=== PATIENT | female | born 1985 | race Caucasian/White ===

== ENCOUNTER → 2022-03-27 10:54 | Outpatient (BNVA) | payer MEDICARE, SELFPAY | PROVIDERS: PCP Physician Assistant; Visit Provider Nurse Practitioner Family | DX: G43.109 Migraine with aura, not intractable, without status migrainosus (principal); G35 Multiple sclerosis; R25.2 Cramp and spasm | CPT/HCPCS: 99202 ==

== ENCOUNTER → 2022-07-16 10:02 | Outpatient (BNVA) | payer MEDICARE, SELFPAY | PROVIDERS: PCP Physician Assistant; Visit Provider Nurse Practitioner Family | DX: G43.109 Migraine with aura, not intractable, without status migrainosus (principal); R25.2 Cramp and spasm; Z79.899 Other long term (current) drug therapy | CPT/HCPCS: 99212 ==

== ENCOUNTER → 2022-07-24 10:11 | Outpatient (BNVA) | payer MEDICARE, SELFPAY | PROVIDERS: PCP Physician Assistant; Visit Provider Psychiatry & Neurology Neurology | DX: G43.119 Migraine with aura, intractable, without status migrainosus (principal) | CPT/HCPCS: 64615; 99211; J0585 ==

== ENCOUNTER → 2022-09-20 14:04 | Outpatient (BNVA) | payer MEDICARE, SELFPAY | PROVIDERS: Visit Provider Nurse Practitioner Family | DX: G43.119 Migraine with aura, intractable, without status migrainosus (principal); R25.2 Cramp and spasm; Z79.899 Other long term (current) drug therapy | CPT/HCPCS: Q3014 ==

== ENCOUNTER → 2022-12-31 10:44 | Outpatient (BNVA) | payer MEDICARE, SELFPAY | PROVIDERS: Visit Provider Psychiatry & Neurology Neurology | DX: G43.709 Chronic migraine without aura, not intractable, without status migrainosus (principal) | CPT/HCPCS: 64615; 99211; J0585 ==

== ENCOUNTER → 2023-04-16 12:17 | Outpatient (BNVA) | payer MEDICARE, MEDICAID, SELFPAY | PROVIDERS: Visit Provider Psychiatry & Neurology Neurology | DX: G43.709 Chronic migraine without aura, not intractable, without status migrainosus (principal); G43.119 Migraine with aura, intractable, without status migrainosus | CPT/HCPCS: 64615; 99211; J0585 ==

== ENCOUNTER 2023-08-05 10:53 | Outpatient (AMB) | payer MEDICARE, SELFPAY ==
--- NOTE | 2023-08-05 11:05 | MHC.OFFVIS ---
Intake Vital Signs 08/05/23 11:06 Weight 165 lb BP 120/66 Blood Pressure Location Rt brachial Position Sitting Pulse 68 Pulse Source Pulse Oximeter Pulse Oximetry (%) 98 Oxygen Delivery Method Room Air Intake Visit Reasons: BOTOX(Pharm)-confirmed Intake Note: Pt is here for botox today Allergies topiramate [From Topamax] Allergy (Intermediate, Verified 08/05/23 11:09) Numbness acetaminophen [From Vicodin] Adverse Reaction (Severe, Verified 08/05/23 11:08) Numbness hydrocodone [From Vicodin] Adverse Reaction (Severe, Verified 08/05/23 11:08) Numbness morphine Adverse Reaction (Mild, Verified 08/05/23 11:08) Numbness sumatriptan [From Imitrex] Adverse Reaction (Mild, Verified 08/05/23 11:08) Unknown Medication List - Last Reconciled 08/12/23 by Jeannine Roman MD amlodipine 2.5 mg PO DAILY baclofen 2.5 - 5 mg (0.5 - 1 x 5 mg) PO DAILY 30 days cholecalciferol (vitamin D3) 50 mcg PO DAILY ocrelizumab (Ocrevus) 600 mg IV [id number] onabotulinumtoxinA (Botox) 155 - 200 units IM ONCE 90 days scopolamine base 1 patch topical Q3D PRN HPI HPI Comments History of Present Illness Details ? 37y/o female comes for treatment of migraines with botox. ??? Most frequent reported adverse reactions following injection of botox for chronic migraine include neck pain (9%), headache(5%), eyelid ptosis(4%), migraine(4%), muscular weakness(4%), musculuskeletal stiffness(4%), bronchitis(3%), injection site pain (3%), musculoskeletal pain(3%), myalgia(3%), facial paresis(2%), HTN(2%) and muscle spasms(2%) were discussed in detail. ??? Botulinum toxin typeA 200units Lot no [id number] expiration Dec 2025 was diluted with 4 cc of normal saline . ??? Muscles injected- ??? Frontalis 4 sites ??? Procerus 1 site ??? Paint Mixer Machine- 2 sites ??? Temporalis- 8 sites ??? Occipitalis- 6 sites ??? Cervical paraspinals- 4 sites ??? Trapezius- 6 sites- 10 units each ??? 5 units each in 31 site ??? Total use- 185units ??? Discarded-15units PFSH Surgical History Hx of hysterectomy Family History Mother Diabetes Fibromyalgia HTN (hypertension) Brother HTN (hypertension) Social History Alcohol intake: never Patient Tobacco Use Status: Never used Tobacco Physical Exam Vital Signs: Last Vital Signs Pulse 68 08/05/23 11:06 BP 120/66 08/05/23 11:06 Pulse Ox 98 08/05/23 11:06 Oxygen Delivery Method Room Air 08/05/23 11:06 Const General: cooperative and no acute distress Orientation/consciousness: patient oriented x3 HEENT Head: Yes normocephalic Neuro General: patient oriented x3, gait normal and CN's II-XI intact bilaterally Cognition (Neuro): normal cognition Motor exam (neuro): 5/5 motor strength present throughout Office Procedures Botulinum toxin Injection 29535 - Migraine Procedure code (CPT) selection complete Office Meds onabotulinumtoxinA 200 unit solution for injection Performing Provider: Jeannine Roman MD Performing Location: [facility] [place] [facility] Administered by: Jeannine Roman MD on 08/12/23 08:26 Dose Route Admin Location Dispensed Lot Number Expiration Date [facility] Senior Windows Systems Engineer 185 unit subcut 200 units [id number] 12/11/25 9545-7693-23 ALLERGAN/BOTOX Comments: see hpi BOTOX was supplied by patient through specialty pharmacy Assessment & Plan Assessment & Plan (1) Migraine with aura, intractable, without status migrainosus: Code(s): G43.119 - Migraine with aura, intractable, without status migrainosus (2) Chronic migraine without aura: Code(s): G43.709 - Chronic migraine without aura, not intractable, without status migrainosus Plan Patient tolerated the procedure well she will call with any side effects ubrelvy 50mg as needed for migraines. ERROR IN ORDERS- BOTOX was supplied by patient . Orders: Orders AMB Botulinum toxin Injection 08/05/23 G43.709 - Chronic migraine without aura, not intractable, without status migrainosus Coding Level of Care Code Est Pt Level 1 (91686) Diagnoses Migraine with aura, intractable, without status migrainosus G43.119 Chronic migraine without aura G43.709 CPT Codes Botox Injection - Botox 3: 01385 - Migraine ([id number])
[2023-08-05 11:06] VITALS: BP 120/66; PULSE 68; O2SAT 98
== END 2023-08-05 11:30 | disposition home or self-care (01) ==
PROVIDERS: Visit Provider Psychiatry & Neurology Neurology
DX: G43.119 Migraine with aura, intractable, without status migrainosus (principal); G43.709 Chronic migraine without aura, not intractable, without status migrainosus
CPT/HCPCS: 64615

== ENCOUNTER → 2023-08-05 10:53 | Outpatient (BNVA) | payer MEDICARE, SELFPAY | PROVIDERS: Visit Provider Psychiatry & Neurology Neurology | DX: G43.119 Migraine with aura, intractable, without status migrainosus (principal); G43.709 Chronic migraine without aura, not intractable, without status migrainosus | CPT/HCPCS: 64615; 99211; J0585 ==

== ENCOUNTER 2023-12-15 10:53 | Outpatient (AMB) | payer MEDICARE, SELFPAY ==
--- NOTE | 2023-12-15 10:58 | A.OFFVIS_ITS ---
Intake Vital Signs 12/15/23 11:02 Height 5 ft 3 in Weight 155 lb BMI 27.5 BP 118/76 Respiration 16 Pulse 83 Pulse Source Pulse Oximeter Pulse Oximetry (%) 99 Oxygen Delivery Method Room Air Intake Visit Reasons: BOTOX(Pharm) - LVM Intake Note: Pt presents for Botox injections. Economic Research Analyst Required: No Allergies topiramate [From Topamax] Allergy (Intermediate, Verified 12/15/23 11:00) Numbness acetaminophen [From Vicodin] Adverse Reaction (Severe, Verified 12/15/23 11:00) Numbness hydrocodone [From Vicodin] Adverse Reaction (Severe, Verified 12/15/23 11:00) Numbness morphine Adverse Reaction (Mild, Verified 12/15/23 11:00) Numbness sumatriptan [From Imitrex] Adverse Reaction (Mild, Verified 12/15/23 11:00) Unknown Medication List - Last Reconciled 12/15/23 by Jeannine Roman MD amlodipine 2.5 mg PO DAILY baclofen 2.5 - 5 mg (0.5 - 1 x 5 mg) PO DAILY 30 days cholecalciferol (vitamin D3) 50 mcg PO DAILY ocrelizumab (Ocrevus) 600 mg IV [id number] onabotulinumtoxinA (Botox) 155 - 200 units IM ONCE 90 days scopolamine base 1 patch topical Q3D PRN HPI HPI Comments History of Present Illness Details ? 37y/o female comes for treatment of migraines with botox. How many migraine days prior to botox- 15-20 migraine days How long do the migraines last- 1-3 days Intensity of migraine- 8-08/19 ER visits related to migraine- 1-2 Effectiveness of botox from last two treatment(s) How many migraine days since receiving treatment: -3-5/month Change? in intensity of migraine?less intense Change in frequency of migraine?decreased Change in use of acute medication for migraine? decreased meds Change in quality of life?improved ER visits related to migraine?none Have at least three months elapsed since last treatment (Last botox date - frequency of injections) 08/05/23 ??? Most frequent reported adverse reactions following injection of botox for chronic migraine include neck pain (9%), headache(5%), eyelid ptosis(4%), migraine(4%), muscular weakness(4%), musculuskeletal stiffness(4%), bronchitis(3%), injection site pain (3%), musculoskeletal pain(3%), myalgia(3%), facial paresis(2%), HTN(2%) and muscle spasms(2%) were discussed in detail. ??? Botulinum toxin typeA 200units Lot no [id number] expiration April 2026 was diluted with 4 cc of normal saline . ??? Muscles injected- ??? Frontalis 4 sitesfgffg ??? Procerus 1 site ??? Community Relations Officer- 2 sites ??? Temporalis- 8 sites ??? Occipitalis- 6 sites ??? Cervical paraspinals- 4 sites ??? Trapezius- 6 sites- 10 units each ??? 5 units each in 31 site ??? Total use- 185units ??? Discarded-15units PFSH Surgical History Hx of hysterectomy Family History Mother Diabetes Fibromyalgia HTN (hypertension) Brother HTN (hypertension) Social History Alcohol intake: never Patient Tobacco Use Status: Never used Tobacco Physical Exam Vital Signs: Last Vital Signs Pulse 83 12/15/23 11:02 Resp 16 12/15/23 11:02 BP 118/76 12/15/23 11:02 Pulse Ox 99 12/15/23 11:02 Oxygen Delivery Method Room Air 12/15/23 11:02 BMI result Body Mass Index 27.5 Const General: cooperative and no acute distress Orientation/consciousness: patient oriented x3 HEENT Head: Yes normocephalic Neuro General: patient oriented x3, gait normal and CN's II-XI intact bilaterally Cognition (Neuro): normal cognition Motor exam (neuro): 5/5 motor strength present throughout Office Procedures Botulinum toxin Injection 63612 - Migraine Procedure code (CPT) selection complete Office Meds onabotulinumtoxinA 200 unit solution for injection Performing Provider: Jeannine Roman MD Performing Location: [facility] [place] [facility] Administered by: Jeannine oRman MD on 12/15/23 11:30 Dose Route Admin Location Dispensed Lot Number Expiration Date N[employer] Phone Specialist 185 unit IM 200 units [id number] 04/10/26 6840-6847-40 ALLERGAN/BOTOX Comments: see hpi Assessment & Plan Assessment & Plan (1) Migraine with aura, intractable, without status migrainosus: Code(s): G43.119 - Migraine with aura, intractable, without status migrainosus (2) Chronic migraine without aura: Code(s): G43.709 - Chronic migraine without aura, not intractable, without status migrainosus Plan Patient tolerated the procedure well she will call with any side effects ubrelvy 50mg as needed for migraines. Orders: Orders AMB Botulinum toxin Injection - Patient Supplied Today G43.709 - Chronic migraine without aura, not intractable, without status migrainosus Coding Level of Care Code Est Pt Level 1 (76908) Diagnoses Migraine with aura, intractable, without status migrainosus G43.119 Chronic migraine without aura G43.709 CPT Codes Botox Injection - Botox 3: 85015 - Migraine ([id number])
[2023-12-15 11:02] VITALS: BP 118/76; PULSE 83; RESP 16; O2SAT 99; BMI 27.5
== END 2023-12-15 11:30 | disposition home or self-care (01) ==
PROVIDERS: Visit Provider Psychiatry & Neurology Neurology
DX: G43.119 Migraine with aura, intractable, without status migrainosus (principal); G43.709 Chronic migraine without aura, not intractable, without status migrainosus
CPT/HCPCS: 64615

== ENCOUNTER → 2023-12-15 10:53 | Outpatient (BNVA) | payer MEDICARE, SELFPAY | PROVIDERS: Visit Provider Psychiatry & Neurology Neurology | DX: G43.709 Chronic migraine without aura, not intractable, without status migrainosus (principal); G43.119 Migraine with aura, intractable, without status migrainosus | CPT/HCPCS: 64615; 99211; J0585 ==

== ENCOUNTER 2024-03-17 09:29 | Outpatient (AMB) | payer MEDICARE, SELFPAY ==
--- NOTE | 2024-03-17 09:32 | A.OFFVIS_ITS ---
Vital Signs 03/17/24 09:33 Height 5 ft 3 in Weight 155 lb BMI 27.5 BP 108/70 Blood Pressure Location Rt brachial Position Sitting Respiration 16 Pulse 80 Pulse Source Palpation Intake Visit Reasons: BOTOX(Pharm)- CONF Intake Note: Pt presents to the office for Botox injections. Car Builder Required: No Allergies topiramate [From Topamax] Allergy (Intermediate, Verified 03/17/24 09:33) Numbness acetaminophen [From Vicodin] Adverse Reaction (Severe, Verified 03/17/24 09:33) Numbness hydrocodone [From Vicodin] Adverse Reaction (Severe, Verified 03/17/24 09:33) Numbness morphine Adverse Reaction (Mild, Verified 03/17/24 09:33) Numbness sumatriptan [From Imitrex] Adverse Reaction (Mild, Verified 03/17/24 09:33) Unknown Medication List - Last Reconciled 03/17/24 by Jeannine Roman MD amlodipine 2.5 mg PO DAILY baclofen 2.5 - 5 mg (0.5 - 1 x 5 mg) PO DAILY 30 days cholecalciferol (vitamin D3) 50 mcg PO DAILY ocrelizumab (Ocrevus) 600 mg IV [id number] onabotulinumtoxinA (Botox) 155 - 200 units IM ONCE 90 days scopolamine base 1 patch topical Q3D PRN HPI Comments Details: ? 38y/o female comes for treatment of migraines with botox. How many migraine days prior to botox- 15-20 migraine days How long do the migraines last- 1-3 days Intensity of migraine- 8-10/10 ER visits related to migraine- 1-2 Effectiveness of botox from last two treatment(s) How many migraine days since receiving treatment: -3-5/month Change? in intensity of migraine?less intense Change in frequency of migraine?decreased Change in use of acute medication for migraine? decreased meds Change in quality of life?improved ER visits related to migraine?none Have at least three months elapsed since last treatment (Last botox date - frequency of injections) 12/03 ??? Most frequent reported adverse reactions following injection of botox for ch ronic migraine include neck pain (9%), headache(5%), eyelid ptosis(4%), migraine(4%), muscular weakness(4%), musculuskeletal stiffness(4%), bronchitis(3%), injection site pain (3%), musculoskeletal pain(3%), myalgia(3%), facial paresis(2%), HTN(2%) and muscle spasms(2%) were discussed in detail. ??? Botulinum toxin typeA 200units Lot no [id number] expiration April 2026 was diluted with 4 cc of normal saline . ??? Muscles injected- ??? Frontalis 4 sitesfgffg ??? Procerus 1 site ??? Site Specialist- 2 sites ??? Temporalis- 8 sites ??? Occipitalis- 6 sites ??? Cervical paraspinals- 4 sites ??? Trapezius- 6 sites- 10 units each ??? 5 units each in 31 site ??? Total use- 185units ??? Discarded-15units PFSH Surgical History Hx of hysterectomy Family History Mother Diabetes Fibromyalgia HTN (hypertension) Brother HTN (hypertension) Social History Alcohol intake: never Patient Tobacco Use Status: Never used Tobacco Physical Exam Vital Signs: Last Vital Signs Pulse 80 03/17/24 09:33 Resp 16 03/17/24 09:33 BP 108/70 03/17/24 09:33 BMI result Body Mass Index 27.5 Const General: cooperative and no acute distress Orientation/consciousness: patient oriented x3 HEENT Head: Yes normocephalic Neuro General: patient oriented x3, gait normal and CN's II-XI intact bilaterally Cognition (Neuro): normal cognition Motor exam (neuro): 5/5 motor strength present throughout Office Procedures Botulinum toxin Injection 73270 - Migraine Procedure code (CPT) selection complete Botulinum toxin Injection 61287 - Migraine Procedure code (CPT) selection complete Office Meds onabotulinumtoxinA 200 unit solution for injection Performing Provider: Jeannine Roman MD Performing Location: [facility] [place] [facility] Documented (not given) by: Jeannine Roman MD on 03/17/24 09:54 Reason Not Given: No Longer Necessary Comments: see hPI onabotulinumtoxinA 200 unit solution for injection Performing Provider: Jeannine Roman MD Performing Location: [facility] [place] [facility] Administered by: Jeannine Roman MD on 03/23/24 14:19 Dose Route Admin Location Dispensed Lot Number Expiration Date NDC Supervisor Product Inspection 185 unit IM 200 units [id number] 04/10/26 7570-3223-90 ALLERGAN/BOTOX Comments: see HPI Assessment & Plan Assessment & Plan (1) Migraine with aura, intractable, without status migrainosus: Code(s): G43.119 - Migraine with aura, intractable, without status migrainosus Category: Medical (2) Chronic migraine without aura: Code(s): G43.709 - Chronic migraine without aura, not intractable, without status migrainosus Category: Medical Plan Patient tolerated the procedure well she will call with any side effects ubrelvy 50mg as needed for migraines. Suggeste dto start on Magnesium Glycinate 250-400mg qhs Orders: Orders AMB Botulinum toxin Injection 03/17/24 G43.709 - Chronic migraine without aura, not intractable, without status migrainosus AMB Botulinum toxin Injection - Patient Supplied 03/17/24 G43.709 - Chronic migraine without aura, not intractable, without status migrainosus Medications: New onabotulinumtoxinA 200 units IM ONCE 1 ea 0RF migraine G43.709 - Chronic migraine without aura, not intractable, without status migrainosus Coding Level of Care Code Est Pt Level 1 (19510) Diagnoses Migraine with aura, intractable, without status migrainosus G43.119 Chronic migraine without aura G43.709 CPT Codes Botox Injection - Botox 3: 71547 - Migraine ([id number]) Botox Injection - Botox 3: 77986 - Migraine ([id number])
[2024-03-17 09:33] VITALS: BP 108/70; PULSE 80; RESP 16; BMI 27.5
== END 2024-03-17 09:51 | disposition home or self-care (01) ==
PROVIDERS: Visit Provider Psychiatry & Neurology Neurology
DX: G43.709 Chronic migraine without aura, not intractable, without status migrainosus (principal)
CPT/HCPCS: 64615

== ENCOUNTER → 2024-03-17 09:29 | Outpatient (BNVA) | payer MEDICARE, SELFPAY | PROVIDERS: Visit Provider Psychiatry & Neurology Neurology | DX: G43.E19 Chronic migraine with aura, intractable, without status migrainosus (principal) | CPT/HCPCS: 64615; 99211; J0585 ==

== ENCOUNTER 2024-07-27 13:49 | Outpatient (AMB) | payer MEDICARE, SELFPAY ==
[2024-07-27 13:55] VITALS: BP 102/60; PULSE 98; RESP 16; O2SAT 99; BMI 27.5
--- NOTE | 2024-07-27 13:55 | A.OFFVIS_ITS ---
Vital Signs 07/27/24 13:55 Height 5 ft 3 in Weight 155 lb 8 oz BMI 27.5 BP 102/60 Blood Pressure Location Rt brachial Position Sitting Respiration 16 Pulse 98 Pulse Source Pulse Oximeter Pulse Oximetry (%) 99 Oxygen Delivery Method Room Air Intake Visit Reasons: BOTOX Intake Note: Pt presents for Botox injections for chronic migraines. Flight Crew Ordnanceman Required: No Allergies topiramate [From Topamax] Allergy (Intermediate, Verified 07/27/24 13:55) Numbness acetaminophen [From Vicodin] Adverse Reaction (Severe, Verified 07/27/24 13:55) Numbness hydrocodone [From Vicodin] Adverse Reaction (Severe, Verified 07/27/24 13:55) Numbness morphine Adverse Reaction (Mild, Verified 07/27/24 13:55) Numbness sumatriptan [From Imitrex] Adverse Reaction (Mild, Verified 07/27/24 13:55) Unknown Medication List - Last Reconciled 07/27/24 by Jeannine Roman MD amlodipine 2.5 mg PO DAILY baclofen 2.5 - 5 mg (0.5 - 1 x 5 mg) PO DAILY 30 days cholecalciferol (vitamin D3) 50 mcg PO DAILY ocrelizumab (Ocrevus) 600 mg IV [id number] onabotulinumtoxinA (Botox) 155 - 200 units IM ONCE 90 days scopolamine base 1 patch topical Q3D PRN HPI Comments Details: ? 38y/o female comes for treatment of migraines with botox. How many migraine days prior to botox- 15-20 migraine days How long do the migraines last- 1-3 days Intensity of migraine- 8-/ ER visits related to migraine- 1-2 Effectiveness of botox from last two treatment(s) How many migraine days since receiving treatment: -3-5/month Change? in intensity of migraine?less intense Change in frequency of migraine?decreased Change in use of acute medication for migraine? decreased meds Change in quality of life?improved ER visits related to migraine?none Have at least three months elapsed since last treatment (Last botox date - frequency of injections) 3 months ago ??? Most frequent reported adverse reactions following injection of botox for chronic migraine include neck pain (9%), headache(5%), eyelid ptosis(4%), migr nannette(4%), muscular weakness(4%), musculuskeletal stiffness(4%), bronchitis(3%), injection site pain (3%), musculoskeletal pain(3%), myalgia(3%), facial paresis(2%), HTN(2%) and muscle spasms(2%) were discussed in detail. ??? Botulinum toxin typeA 200units Lot no [id number] expiration Oct 2026 was diluted with 4 cc of normal saline . ??? Muscles injected- ??? Frontalis 4 sitesfgffg ??? Procerus 1 site ??? Vehicle Leasing And Rental Manager- 2 sites ??? Temporalis- 8 sites ??? Levator 15 units each ??? Cervical paraspinals- 4 sites ??? Trapezius- 6 sites- 10 units each ??? 5 units each in 31 site ??? Total use- 185units ??? Discarded-15units [facility] Medical History (Updated 07/27/24 @ 14:25 by Jeannine Roman MD) Chronic migraine without aura, intractable, without status migrainosus Surgical History Hx of hysterectomy Family History Mother Diabetes Fibromyalgia HTN (hypertension) Brother HTN (hypertension) Social History Alcohol intake: never Patient Tobacco Use Status: Never used Tobacco Physical Exam Vital Signs: Last Vital Signs Pulse 98 07/27/24 13:55 Resp 16 07/27/24 13:55 BP 102/60 07/27/24 13:55 Pulse Ox 99 07/27/24 13:55 Oxygen Delivery Method Room Air 07/27/24 13:55 BMI result Body Mass Index 27.5 Const General: cooperative and no acute distress Orientation/consciousness: patient oriented x3 HEENT Head: Yes normocephalic Neuro General: patient oriented x3, gait normal and CN's II-XI intact bilaterally Cognition (Neuro): normal cognition Motor exam (neuro): 5/5 motor strength present throughout Office Procedures Botulinum toxin Injection 92597 - Migraine Procedure code (CPT) selection complete Office Meds onabotulinumtoxinA 200 unit solution for injection Performing Provider: Jeannine Roman MD Performing Location: [facility] [place] [facility] Administered by: Jeannine Roman MD on 07/27/24 14:26 Dose Route Admin Location Dispensed Lot Number Expiration Date [facility] Teacher [employer] 200 unit subcut 200 units [id number] 10/10/26 9974-0865-39 ALLERGAN/BOTOX Comments: see HPI Assessment & Plan Assessment & Plan (1) Chronic migraine without aura, intractable, without status migrainosus: Code(s): G43.719 - Chronic migraine without aura, intractable, without status migrainosus Category: Medical (2) Migraine with aura, intractable, without status migrainosus: Code(s): G43.119 - Migraine with aura, intractable, without status migrainosus Category: Medical Plan Patient tolerated the procedure well she will call with any side effects ubrelvy 50mg as needed for migraines. Suggested to start on Magnesium Glycinate 250-400mg qhs Baclofen 5 mg qd to bid Orders: Orders AMB Botulinum toxin Injection - Patient Supplied Today G43.719 - Chronic migraine without aura, intractable, without status migrainosus Medications: New onabotulinumtoxinA 200 units subcut ONCE 1 ea 0RF migraine G43.719 - Chronic migraine without aura, intractable, without status migrainosus Coding Level of Care Code Est Pt Level 1 (01607) Diagnoses Chronic migraine without aura, intractable, without status migrainosus G43.719 Migraine with aura, intractable, without status migrainosus G43.119 CPT Codes Botox Injection - Botox 3: 72422 - Migraine ([id number])
== END 2024-07-27 14:17 | disposition home or self-care (01) ==
PROVIDERS: Visit Provider Psychiatry & Neurology Neurology
DX: G43.E19 Chronic migraine with aura, intractable, without status migrainosus (principal)
CPT/HCPCS: 64615

== ENCOUNTER → 2024-07-27 13:49 | Outpatient (BNVA) | payer MEDICARE, SELFPAY | PROVIDERS: Visit Provider Psychiatry & Neurology Neurology | DX: G43.E19 Chronic migraine with aura, intractable, without status migrainosus (principal) | CPT/HCPCS: 64615; 99211; J0585 ==